=== PATIENT | male | born 1935 | race Caucasian/White ===

== ENCOUNTER 2017-09-30 18:31 | Emergency (ER) | payer MEDICARE, OTHER | END 2017-09-30 20:02 | disposition home or self-care (01) | LOC: E/R 18:31 → FTE 20:02 | DX: M75.91 Shoulder lesion, unspecified, right shoulder (principal); Z79.82 Long term (current) use of aspirin; Z95.0 Presence of cardiac pacemaker; Z95.1 Presence of aortocoronary bypass graft | CPT/HCPCS: 99283 ==

== ENCOUNTER 2018-05-27 00:51 | Inpatient (IN) | payer MEDICARE, OTHER ==
[2018-05-27 01:30] LABS: AADO2 Arterial 572.3 mmHg (7.0-24.0); ADD MAN DIFF? NO; Arterial Base Excess -4.5 mmol/L (-3.0-3); Arterial COHb 0.3 % (0.0-3.0); Arterial Fraction of Oxyhgb 96.6 % (93.0-99.0); Arterial HCO3 21.3 mmol/L (22.0-26.0); Arterial MetHb 0.1 % (0.0-1.5); Arterial pCO2 41.8 mmhg (35-45); MODE MASK - NRB; Site LB
[2018-05-27 01:33] LABS: BASOPHILS % 0.3 % (0.0-2.0); EOSINOPHILS # 0.1 10^3/ul (0.0-0.5); EOSINOPHILS % 0.5 % (0.0-7.0); HEMATOCRIT 42.1 % (42.0-52.0); LYMPHOCYTES # 1.8 10^3/ul (0.8-2.9); LYMPHOCYTES % 18.8 % (15.0-51.0); MEAN CORPUSCULAR HEMOGLOBIN 28.1 pg (29.0-33.0); MEAN CORPUSCULAR HGB CONC 30.9 g/dl (32.0-37.0); MEAN CORPUSCULAR VOLUME 90.9 fl (82.0-101.0); MEAN PLATELET VOLUME 10.7 fl (7.4-10.4); MONOCYTE # 0.6 10^3/ul (0.3-0.9); MONOCYTES % 5.9 % (0.0-11.0); NEUTROPHIL # 6.9 10^3/ul (1.6-7.5); NEUTROPHILS % 74.2 % (39.0-77.0); PLATELET COUNT 215 10^3/UL (140-415); RED BLOOD COUNT 4.63 10^6/ul (4.70-6.10)
[2018-05-27 01:33] LABS: WHITE BLOOD COUNT 9.4 10^3/ul (4.8-10.8)
[2018-05-27] MEDS: ALBUTEROL 0.083% (NEB) 2.5 MG/3 ML AMP NEB (01:48)
[2018-05-27] MEDS: IPRATROPIUM (NEB) 0.5 MG/2.5 ML AMP NEB (01:48)
[2018-05-27 01:53] LABS: ALANINE AMINOTRANSFERASE 15 IU/L (13-69); ALBUMIN 4.5 g/dl (3.3-4.9); ALBUMIN/GLOBULIN RATIO 1.21; ALKALINE PHOSPHATASE 76 IU/L (42-121); ANION GAP 15 (5-13); ASPARTATE AMINO TRANSFERASE 32 IU/L (15-46); BILIRUBIN,INDIRECT 0.9 mg/dl (0-1.1); BILIRUBIN,TOTAL 0.9 mg/dl (0.2-1.3); BLOOD UREA NITROGEN 35 mg/dl (7-20); CALCIUM 9.2 mg/dl (8.4-10.2); CARBON DIOXIDE 24 mmol/L (21-31); CHLORIDE 104 mmol/L (97-110); GLUCOSE 127 mg/dl (70-220); POTASSIUM 5.1 mmol/L (3.5-5.1); SODIUM 143 mmol/L (135-144); TOTAL PROTEIN 8.2 g/dl (6.1-8.1)
[2018-05-27 01:56] LABS: LACTIC ACID 2.4 mmol/L (0.5-2.0)
[2018-05-27 02:05] LABS: B-TYPE NATRIURETIC PEPTIDE 26200 PG/ML (0-450); TROPONIN-I 0.093 ng/ml (0.000-0.120)
[2018-05-27 02:22] LABS: INR 1.03; PROTIME 13.6 Sec (11.9-14.9); PT RATIO 1.1
[2018-05-27 02:23] LABS: PARTIAL THROMBOPLASTIN TIME 27.2 Sec (23.0-35.0)
[2018-05-27] MEDS: LORAZEPAM 2 MG INJ IV ×2 (02:38→09:33)
[2018-05-27] MEDS: CEFEPIME 2GM/50 ML (PMX) 50 ML IVPB (03:04)
[2018-05-27] MEDS: SODIUM CHLORIDE 0.9% 1L BAG IV* (03:04)
[2018-05-27] MEDS ORDERED: FUROSEMIDE 40 MG INJ (03:23)
[2018-05-27 03:30] LABS: AADO2 Arterial 595.8 mmHg (7.0-24.0); Arterial Base Excess -9.7 mmol/L (-3.0-3); Arterial Blood Gas Oxygen Sat 90.6 mmHG (95.0-100.0); Arterial COHb 0.3 % (0.0-3.0); Arterial Fraction of Oxyhgb 90.2 % (93.0-99.0); Arterial HCO3 18.1 mmol/L (22.0-26.0); Arterial MetHb 0.1 % (0.0-1.5); Arterial pCO2 46.3 mmhg (35-45); MODE MASK - NRB; Site Right Brachial
[2018-05-27] MEDS ORDERED: METHYLPREDNISOLONE 125 MG INJ (03:46)
[2018-05-27] MEDS ORDERED: NITROGLYCERIN 2% 1 GM OINT PKT (03:51)
[2018-05-27] MEDS: METHYLPREDNISOLONE 125 MG INJ IV (03:52)
[2018-05-27] MEDS: FUROSEMIDE 40 MG INJ IV (03:52)
[2018-05-27] MEDS: VANCOMYCIN 1 GM (PMX) 250 ML IVPB (04:08)
[2018-05-27] MEDS ORDERED: VANCOMYCIN IV PER PHARMACY XX (08:00)
[2018-05-27 08:08] LABS: AADO2 Arterial 510.4 mmHg (7.0-24.0); Allen Test ACCEPTAB; Arterial Base Excess -5.8 mmol/L (-3.0-3); Arterial Blood Gas Oxygen Sat 98.9 mmHG (95.0-100.0); Arterial COHb 0.3 % (0.0-3.0); Arterial Fraction of Oxyhgb 98.5 % (93.0-99.0); Arterial HCO3 18.5 mmol/L (22.0-26.0); Arterial MetHb 0.1 % (0.0-1.5); Arterial pCO2 33.1 mmhg (35-45); Blood Gas IEPAP 15/5; Blood Gas PS 10; MODE MASK - BIPAP; Site Right Radial
[2018-05-27] MEDS: ASPIRIN (EC) 81 MG TAB PO (09:00)
[2018-05-27] MEDS: METOPROLOL (XL) 50 MG TAB PO (09:00)
[2018-05-27] MEDS: LOSARTAN 50 MG TAB PO (09:00)
[2018-05-27] MEDS: CEFEPIME 1GM/50 ML (PMX) 50 ML IVPB ×2 (09:18→21:20)
[2018-05-27 09:26] LABS: LACTIC ACID 1.9 mmol/L (0.5-2.0)
[2018-05-27] MEDS: VANCOMYCIN 500MG/NS (PMX) 100 ML IVPB (10:25)
[2018-05-27] MEDS: ENALAPRILAT 1.25 MG INJ IV (13:45)
[2018-05-27 14:44] LABS: AADO2 Arterial 146.4 mmHg (7.0-24.0); Allen Test ACCEPTAB; Arterial Base Excess -3.9 mmol/L (-3.0-3); Arterial Blood Gas Oxygen Sat 96.8 mmHG (95.0-100.0); Arterial COHb 0 % (0.0-3.0); Arterial Fraction of Oxyhgb 96.7 % (93.0-99.0); Arterial HCO3 20.3 mmol/L (22.0-26.0); Arterial MetHb 0.1 % (0.0-1.5); Arterial pCO2 34.6 mmhg (35-45); MODE NASAL CANNULA; Site Right Radial
[2018-05-27 17:23] LABS: ADD UMIC YES; UR ASCORBIC ACID NEGATIVE (NEGATIVE); UR BACTERIA FEW /HPF (NONE SEEN); UR BILIRUBIN (Dip) NEGATIVE (NEGATIVE); UR BLOOD (Dip) 3+ mg/dL (NEGATIVE); UR CLARITY SLIGHTLY CLOUDY (CLEAR); UR COLOR YELLOW (YELLOW); UR GLUCOSE (Dip) NEGATIVE (NEGATIVE); UR KETONES (Dip) NEGATIVE (NEGATIVE); UR LEUKOCYTE ESTERASE (Dip) NEGATIVE Leu/ul (NEGATIVE); UR MUCUS FEW /HPF (NONE SEEN); UR NITRITE (Dip) NEGATIVE (NEGATIVE); UR RBC 121 /HPF (0-5); UR TOTAL PROTEIN (Dip) 1+ mg/dl (NEGATIVE); UR UROBILINOGEN (Dip) NEGATIVE (NEGATIVE); UR WBC 5 /HPF (0-5)
[2018-05-27 17:27] LABS: CREATININE,URINE RANDOM 60.85 mg/dl (20-370)
[2018-05-27 17:27] LABS: SODIUM,URINE RANDOM 86 mmol/L (30-90)
[2018-05-27] MEDS: ATORVASTATIN 40 MG TAB PO (21:00)
[2018-05-28] MEDS: VANCOMYCIN 750 MG in SOD CHLORIDE 0.9% 150 ML IVPB (04:01)
[2018-05-28 06:52] LABS: ADD MAN DIFF? NO
[2018-05-28 06:57] LABS: ABNORMAL IP MESSAGE 1; BASOPHILS % 0.1 % (0.0-2.0); HEMATOCRIT 38.4 % (42.0-52.0); HEMOGLOBIN 12.4 g/dl (14.0-18.0); LYMPHOCYTES # 0.6 10^3/ul (0.8-2.9); LYMPHOCYTES % 4.1 % (15.0-51.0); MEAN CORPUSCULAR HEMOGLOBIN 28.4 pg (29.0-33.0); MEAN CORPUSCULAR HGB CONC 32.3 g/dl (32.0-37.0); MEAN CORPUSCULAR VOLUME 87.9 fl (82.0-101.0); MEAN PLATELET VOLUME 11.4 fl (7.4-10.4); MONOCYTE # 0.4 10^3/ul (0.3-0.9); MONOCYTES % 2.8 % (0.0-11.0); NEUTROPHIL # 12.7 10^3/ul (1.6-7.5); NEUTROPHILS % 92.6 % (39.0-77.0); PLATELET COUNT 167 10^3/UL (140-415); POSITIVE DIFF @See below; RED BLOOD COUNT 4.37 10^6/ul (4.70-6.10); RED CELL DISTRIBUTION WIDTH 15.6 % (11.5-14.5)
[2018-05-28 06:57] LABS: WHITE BLOOD COUNT 13.7 10^3/ul (4.8-10.8)
[2018-05-28 07:39] LABS: ANION GAP 15 (5-13); BLOOD UREA NITROGEN 60 mg/dl (7-20); CALCIUM 9.1 mg/dl (8.4-10.2); CARBON DIOXIDE 21 mmol/L (21-31); CHLORIDE 106 mmol/L (97-110); CREATININE 2.59 mg/dl (0.61-1.24); GLUCOSE 100 mg/dl (70-220); MAGNESIUM 2.1 mg/dl (1.7-2.5); PHOSPHORUS 5.8 mg/dl (2.5-4.9); POTASSIUM 4.7 mmol/L (3.5-5.1); SODIUM 142 mmol/L (135-144)
[2018-05-28] MEDS: ASPIRIN (EC) 81 MG TAB PO (09:09)
[2018-05-28] MEDS: METOPROLOL (XL) 50 MG TAB PO (09:10)
[2018-05-28] MEDS: LOSARTAN 50 MG TAB PO (09:11)
[2018-05-28] MEDS: CEFEPIME 1GM/50 ML (PMX) 50 ML IVPB (09:11)
[2018-05-28] MEDS: LORAZEPAM 2 MG INJ IV ×2 (12:27→18:02)
[2018-05-28] MEDS: ISOSORBIDE DINITRATE 10 MG TAB PO ×2 (12:33→22:22)
[2018-05-28] MEDS: ATORVASTATIN 40 MG TAB PO (22:22)
[2018-05-29] MEDS: VANCOMYCIN 750 MG in SOD CHLORIDE 0.9% 150 ML IVPB (03:42)
[2018-05-29 07:20] LABS: ADD MAN DIFF? NO
[2018-05-29 07:28] LABS: BASOPHILS % 0.1 % (0.0-2.0); EOSINOPHILS % 0.4 % (0.0-7.0); HEMATOCRIT 36.5 % (42.0-52.0); HEMOGLOBIN 11.7 g/dl (14.0-18.0); LYMPHOCYTES % 9.9 % (15.0-51.0); MEAN CORPUSCULAR HGB CONC 32.1 g/dl (32.0-37.0); MEAN CORPUSCULAR VOLUME 87.3 fl (82.0-101.0); MEAN PLATELET VOLUME 11.5 fl (7.4-10.4); MONOCYTE # 0.6 10^3/ul (0.3-0.9); NEUTROPHIL # 8.4 10^3/ul (1.6-7.5); NEUTROPHILS % 83.2 % (39.0-77.0); PLATELET COUNT 153 10^3/UL (140-415); RED BLOOD COUNT 4.18 10^6/ul (4.70-6.10); RED CELL DISTRIBUTION WIDTH 15.7 % (11.5-14.5)
[2018-05-29 07:28] LABS: WHITE BLOOD COUNT 10.1 10^3/ul (4.8-10.8)
[2018-05-29 08:03] LABS: B-TYPE NATRIURETIC PEPTIDE 21400 PG/ML (0-450)
[2018-05-29 08:11] LABS: ANION GAP 10 (5-13); BLOOD UREA NITROGEN 71 mg/dl (7-20); CALCIUM 8.4 mg/dl (8.4-10.2); CARBON DIOXIDE 25 mmol/L (21-31); CHLORIDE 105 mmol/L (97-110); CREATININE 2.48 mg/dl (0.61-1.24); GLUCOSE 90 mg/dl (70-220); MAGNESIUM 2.1 mg/dl (1.7-2.5); PHOSPHORUS 3.8 mg/dl (2.5-4.9); POTASSIUM 4.5 mmol/L (3.5-5.1); SODIUM 140 mmol/L (135-144)
[2018-05-29 08:24] LABS: AADO2 Arterial 67.5 mmHg (7.0-24.0); Allen Test ACCEPTAB; Arterial Base Excess -2.1 mmol/L (-3.0-3); Arterial Blood Gas Oxygen Sat 98.7 mmHG (95.0-100.0); Arterial COHb 0.3 % (0.0-3.0); Arterial Fraction of Oxyhgb 98.3 % (93.0-99.0); Arterial HCO3 21.9 mmol/L (22.0-26.0); Arterial MetHb 0.1 % (0.0-1.5); Arterial pCO2 35.1 mmhg (35-45); MODE NASAL CANNULA; Site Right Radial
[2018-05-29] MEDS: CEFEPIME 1GM/50 ML (PMX) 50 ML IVPB (10:03)
[2018-05-29] MEDS: ASPIRIN (EC) 81 MG TAB PO (10:04)
[2018-05-29] MEDS: METOPROLOL (XL) 50 MG TAB PO (10:04)
[2018-05-29] MEDS: ISOSORBIDE DINITRATE 10 MG TAB PO ×3 (10:04→21:08)
[2018-05-29] MEDS: ALBUTEROL/IPRATROPIUM (NEB) 3 ML AMP HHN (12:04)
[2018-05-29 17:57] LABS: CREATININE, RANDOM URINE 63 mg/dL (20-320); MICROALBUMIN 28.6 mg/dL; MICROALBUMIN/CREATININE RATIO 454 (<30)
[2018-05-29] MEDS: ATORVASTATIN 40 MG TAB PO (21:07)
[2018-05-30 03:37] LABS: ADD MAN DIFF? NO
[2018-05-30 04:03] LABS: ANION GAP 9 (5-13); BLOOD UREA NITROGEN 69 mg/dl (7-20); CALCIUM 8.7 mg/dl (8.4-10.2); CARBON DIOXIDE 24 mmol/L (21-31); CHLORIDE 109 mmol/L (97-110); CREATININE 1.98 mg/dl (0.61-1.24); GLUCOSE 99 mg/dl (70-220); MAGNESIUM 2.1 mg/dl (1.7-2.5); PHOSPHORUS 3.4 mg/dl (2.5-4.9); POTASSIUM 4.7 mmol/L (3.5-5.1); SODIUM 142 mmol/L (135-144)
[2018-05-30 04:05] LABS: BASOPHILS % 0.2 % (0.0-2.0); EOSINOPHILS # 0.1 10^3/ul (0.0-0.5); EOSINOPHILS % 1.5 % (0.0-7.0); HEMOGLOBIN 11.5 g/dl (14.0-18.0); LYMPHOCYTES % 11.4 % (15.0-51.0); MEAN CORPUSCULAR HGB CONC 31.9 g/dl (32.0-37.0); MEAN CORPUSCULAR VOLUME 87.6 fl (82.0-101.0); MEAN PLATELET VOLUME 11.4 fl (7.4-10.4); MONOCYTE # 0.6 10^3/ul (0.3-0.9); MONOCYTES % 6.6 % (0.0-11.0); NEUTROPHIL # 6.8 10^3/ul (1.6-7.5); NEUTROPHILS % 79.8 % (39.0-77.0); PLATELET COUNT 176 10^3/UL (140-415); RED BLOOD COUNT 4.11 10^6/ul (4.70-6.10); RED CELL DISTRIBUTION WIDTH 15.6 % (11.5-14.5)
[2018-05-30 04:05] LABS: WHITE BLOOD COUNT 8.6 10^3/ul (4.8-10.8)
[2018-05-30 04:13] LABS: VANCOMYCIN,TROUGH 18.1 ug/ml (10.0-20.0)
[2018-05-30] MEDS: LORAZEPAM 2 MG INJ IV (07:07)
[2018-05-30] MEDS ORDERED: LORAZEPAM 0.5 MG TAB PO (08:30)
[2018-05-30] MEDS: ASPIRIN (EC) 81 MG TAB PO (08:46)
[2018-05-30] MEDS: QUETIAPINE 25 MG TAB PO (08:46)
[2018-05-30] MEDS: ISOSORBIDE DINITRATE 10 MG TAB PO ×3 (08:47→13:00)
[2018-05-30] MEDS: METOPROLOL (XL) 50 MG TAB PO (08:48)
[2018-05-30] MEDS: CEFEPIME 1GM/50 ML (PMX) 50 ML IVPB (11:30)
[2018-05-30] MEDS: VANCOMYCIN 750 MG in SOD CHLORIDE 0.9% 150 ML IVPB (16:46)
[2018-05-30] MEDS: ATORVASTATIN 40 MG TAB PO (20:22)
[2018-05-31 08:12] LABS: ALANINE AMINOTRANSFERASE 134 IU/L (13-69); ALBUMIN 3.3 g/dl (3.3-4.9); ALBUMIN/GLOBULIN RATIO 1.03; ALKALINE PHOSPHATASE 56 IU/L (42-121); ANION GAP 8 (5-13); ASPARTATE AMINO TRANSFERASE 65 IU/L (15-46); BILIRUBIN,INDIRECT 0.7 mg/dl (0-1.1); BILIRUBIN,TOTAL 0.7 mg/dl (0.2-1.3); BLOOD UREA NITROGEN 51 mg/dl (7-20); CALCIUM 8.9 mg/dl (8.4-10.2); CARBON DIOXIDE 25 mmol/L (21-31); CHLORIDE 111 mmol/L (97-110); CREATININE 1.46 mg/dl (0.61-1.24); GLUCOSE 92 mg/dl (70-220); SODIUM 144 mmol/L (135-144); TOTAL PROTEIN 6.5 g/dl (6.1-8.1)
[2018-05-31 08:14] LABS: B-TYPE NATRIURETIC PEPTIDE 14000 PG/ML (0-450)
[2018-05-31] MEDS: ISOSORBIDE DINITRATE 10 MG TAB PO ×3 (08:24→20:46)
[2018-05-31] MEDS: ASPIRIN (EC) 81 MG TAB PO (08:24)
[2018-05-31] MEDS: CEFEPIME 1GM/50 ML (PMX) 50 ML IVPB (08:24)
[2018-05-31] MEDS: METOPROLOL (XL) 50 MG TAB PO (08:25)
[2018-05-31 09:10] LABS: ANION GAP 8 (5-13); BLOOD UREA NITROGEN 50 mg/dl (7-20); CALCIUM 8.9 mg/dl (8.4-10.2); CARBON DIOXIDE 24 mmol/L (21-31); CHLORIDE 111 mmol/L (97-110); CREATININE 1.42 mg/dl (0.61-1.24); GLUCOSE 90 mg/dl (70-220); SODIUM 143 mmol/L (135-144)
[2018-05-31 09:23] LABS: POTASSIUM 5.4 mmol/L (3.5-5.1)
[2018-05-31] MEDS: BUMETANIDE 1 MG TAB PO (20:46)
[2018-05-31] MEDS: ATORVASTATIN 40 MG TAB PO (20:46)
[2018-05-31] MEDS ORDERED: VANCOMYCIN 750 MG in SOD CHLORIDE 0.9% 150 ML IVPB (23:00)
[2018-06-01] MEDS: BUMETANIDE 1 MG TAB PO (08:15)
[2018-06-01] MEDS: ISOSORBIDE DINITRATE 10 MG TAB PO ×3 (08:16→22:20)
[2018-06-01] MEDS: METOPROLOL (XL) 50 MG TAB PO (08:16)
[2018-06-01] MEDS: CEFEPIME 1GM/50 ML (PMX) 50 ML IVPB (08:17)
[2018-06-01] MEDS: ASPIRIN (EC) 81 MG TAB PO (08:17)
[2018-06-01 08:24] LABS: ADD MAN DIFF? NO
[2018-06-01 08:29] LABS: WHITE BLOOD COUNT 8.2 10^3/ul (4.8-10.8)
[2018-06-01 08:29] LABS: BASOPHILS % 0.5 % (0.0-2.0); EOSINOPHILS # 0.3 10^3/ul (0.0-0.5); EOSINOPHILS % 3.5 % (0.0-7.0); HEMATOCRIT 39.4 % (42.0-52.0); HEMOGLOBIN 12.7 g/dl (14.0-18.0); LYMPHOCYTES # 1.3 10^3/ul (0.8-2.9); LYMPHOCYTES % 15.3 % (15.0-51.0); MEAN CORPUSCULAR HGB CONC 32.2 g/dl (32.0-37.0); MEAN CORPUSCULAR VOLUME 86.8 fl (82.0-101.0); MONOCYTE # 0.8 10^3/ul (0.3-0.9); MONOCYTES % 10.1 % (0.0-11.0); NEUTROPHIL # 5.8 10^3/ul (1.6-7.5); NEUTROPHILS % 70.2 % (39.0-77.0); PLATELET COUNT 225 10^3/UL (140-415); RED BLOOD COUNT 4.54 10^6/ul (4.70-6.10); RED CELL DISTRIBUTION WIDTH 15.8 % (11.5-14.5)
[2018-06-01 08:51] LABS: ANION GAP 9 (5-13); BLOOD UREA NITROGEN 50 mg/dl (7-20); CALCIUM 9.1 mg/dl (8.4-10.2); CARBON DIOXIDE 25 mmol/L (21-31); CHLORIDE 106 mmol/L (97-110); CREATININE 1.61 mg/dl (0.61-1.24); GLUCOSE 91 mg/dl (70-220); MAGNESIUM 2.1 mg/dl (1.7-2.5); PHOSPHORUS 3.1 mg/dl (2.5-4.9); POTASSIUM 4.7 mmol/L (3.5-5.1); SODIUM 140 mmol/L (135-144)
[2018-06-01] MEDS: ATORVASTATIN 40 MG TAB PO (22:20)
[2018-06-02] MEDS: BUMETANIDE 1 MG TAB PO (09:29)
[2018-06-02] MEDS: METOPROLOL (XL) 50 MG TAB PO (09:29)
[2018-06-02] MEDS: CEFEPIME 1GM/50 ML (PMX) 50 ML IVPB (09:29)
[2018-06-02] MEDS: ISOSORBIDE DINITRATE 10 MG TAB PO ×3 (09:29→21:50)
[2018-06-02] MEDS: ASPIRIN (EC) 81 MG TAB PO (09:29)
[2018-06-02] MEDS: QUETIAPINE 25 MG TAB PO ×2 (09:30→21:50)
[2018-06-02] MEDS: ATORVASTATIN 40 MG TAB PO (21:49)
[2018-06-03] MEDS: ALBUTEROL/IPRATROPIUM (NEB) 3 ML AMP HHN (03:33)
[2018-06-03 08:20] LABS: ADD MAN DIFF? NO
[2018-06-03 08:27] LABS: WHITE BLOOD COUNT 9.9 10^3/ul (4.8-10.8)
[2018-06-03 08:27] LABS: BASOPHIL # 0.1 10^3/ul (0.0-0.1); BASOPHILS % 0.6 % (0.0-2.0); EOSINOPHILS # 0.3 10^3/ul (0.0-0.5); EOSINOPHILS % 2.8 % (0.0-7.0); HEMATOCRIT 37.8 % (42.0-52.0); HEMOGLOBIN 12.1 g/dl (14.0-18.0); LYMPHOCYTES # 1.7 10^3/ul (0.8-2.9); LYMPHOCYTES % 17.6 % (15.0-51.0); MEAN CORPUSCULAR HEMOGLOBIN 27.8 pg (29.0-33.0); MEAN CORPUSCULAR VOLUME 86.7 fl (82.0-101.0); MEAN PLATELET VOLUME 10.6 fl (7.4-10.4); MONOCYTE # 0.9 10^3/ul (0.3-0.9); NEUTROPHIL # 6.9 10^3/ul (1.6-7.5); NEUTROPHILS % 69.5 % (39.0-77.0); PLATELET COUNT 265 10^3/UL (140-415); RED BLOOD COUNT 4.36 10^6/ul (4.70-6.10); RED CELL DISTRIBUTION WIDTH 15.9 % (11.5-14.5)
[2018-06-03 08:45] LABS: ANION GAP 11 (5-13); BLOOD UREA NITROGEN 62 mg/dl (7-20); CALCIUM 9.3 mg/dl (8.4-10.2); CARBON DIOXIDE 26 mmol/L (21-31); CHLORIDE 104 mmol/L (97-110); CREATININE 2.22 mg/dl (0.61-1.24); GLUCOSE 97 mg/dl (70-220); POTASSIUM 4.8 mmol/L (3.5-5.1); SODIUM 141 mmol/L (135-144)
[2018-06-03] MEDS: CEFEPIME 1GM/50 ML (PMX) 50 ML IVPB (09:13)
[2018-06-03] MEDS: ISOSORBIDE DINITRATE 10 MG TAB PO ×3 (09:14→21:20)
[2018-06-03] MEDS: BUMETANIDE 1 MG TAB PO (09:14)
[2018-06-03] MEDS: METOPROLOL (XL) 50 MG TAB PO (09:14)
[2018-06-03] MEDS: QUETIAPINE 25 MG TAB PO (09:14)
[2018-06-03] MEDS: ASPIRIN (EC) 81 MG TAB PO (09:14)
[2018-06-03] MEDS: APIXABAN 5 MG TABLET PO (21:19)
[2018-06-03] MEDS: ATORVASTATIN 40 MG TAB PO (21:19)
[2018-06-04 06:12] LABS: ADD MAN DIFF? NO
[2018-06-04 06:15] LABS: WHITE BLOOD COUNT 14.3 10^3/ul (4.8-10.8)
[2018-06-04 06:15] LABS: BASOPHIL # 0.1 10^3/ul (0.0-0.1); BASOPHILS % 0.3 % (0.0-2.0); EOSINOPHILS # 0.2 10^3/ul (0.0-0.5); EOSINOPHILS % 1.6 % (0.0-7.0); HEMATOCRIT 39.6 % (42.0-52.0); HEMOGLOBIN 12.6 g/dl (14.0-18.0); LYMPHOCYTES # 1.4 10^3/ul (0.8-2.9); LYMPHOCYTES % 9.9 % (15.0-51.0); MEAN CORPUSCULAR HEMOGLOBIN 27.9 pg (29.0-33.0); MEAN CORPUSCULAR HGB CONC 31.8 g/dl (32.0-37.0); MEAN CORPUSCULAR VOLUME 87.6 fl (82.0-101.0); MONOCYTE # 1.1 10^3/ul (0.3-0.9); MONOCYTES % 7.4 % (0.0-11.0); NEUTROPHIL # 11.5 10^3/ul (1.6-7.5); NEUTROPHILS % 80.1 % (39.0-77.0); PLATELET COUNT 299 10^3/UL (140-415); RED BLOOD COUNT 4.52 10^6/ul (4.70-6.10); RED CELL DISTRIBUTION WIDTH 15.7 % (11.5-14.5)
[2018-06-04 06:55] LABS: B-TYPE NATRIURETIC PEPTIDE 7580 PG/ML (0-450)
[2018-06-04 07:04] LABS: ANION GAP 14 (5-13); BLOOD UREA NITROGEN 66 mg/dl (7-20); CALCIUM 9.3 mg/dl (8.4-10.2); CARBON DIOXIDE 24 mmol/L (21-31); CHLORIDE 101 mmol/L (97-110); CREATININE 2.39 mg/dl (0.61-1.24); GLUCOSE 130 mg/dl (70-220); PHOSPHORUS 4.3 mg/dl (2.5-4.9); POTASSIUM 4.8 mmol/L (3.5-5.1); SODIUM 139 mmol/L (135-144)
[2018-06-04] MEDS: ACETAMINOPHEN 500 MG TAB PO (07:04)
[2018-06-04] MEDS: APIXABAN 5 MG TABLET PO (10:23)
[2018-06-04] MEDS: QUETIAPINE 25 MG TAB PO ×2 (10:23→18:09)
[2018-06-04] MEDS: METOPROLOL (XL) 50 MG TAB PO (10:26)
[2018-06-04] MEDS: ISOSORBIDE DINITRATE 10 MG TAB PO ×2 (10:26→13:41)
[2018-06-04] MEDS: CEFEPIME 1GM/50 ML (PMX) 50 ML IVPB (10:38)
[2018-06-05] MEDS ORDERED: BUMETANIDE 1 MG TAB PO (09:00)
== END 2018-06-04 19:44 | DRG 871 ==
LOC: TEL 05-31 17:10 → E/R 00:51 → TEL 02:03
PROC: 5A09357 Assistance with Respiratory Ventilation, Less than 24 Consecutive Hours, Continuous Positive Airway Pressure (ICD-10-PCS; principal; 2018-05-27)
DX: A41.9 Sepsis, unspecified organism (principal); I50.23 Acute on chronic systolic (congestive) heart failure; J96.01 Acute respiratory failure with hypoxia; J18.9 Pneumonia, unspecified organism; J96.02 Acute respiratory failure with hypercapnia; I13.0 Hypertensive heart and chronic kidney disease with heart failure and stage 1 through stage 4 chronic kidney disease, or unspecified chronic kidney disease; N17.9 Acute kidney failure, unspecified; G93.40 Encephalopathy, unspecified; J44.1 Chronic obstructive pulmonary disease with (acute) exacerbation; N18.4 Chronic kidney disease, stage 4 (severe); L03.116 Cellulitis of left lower limb; R65.20 Severe sepsis without septic shock; E78.5 Hyperlipidemia, unspecified; F41.9 Anxiety disorder, unspecified; I73.9 Peripheral vascular disease, unspecified; I25.10 Atherosclerotic heart disease of native coronary artery without angina pectoris; I25.5 Ischemic cardiomyopathy; I48.91 Unspecified atrial fibrillation; I45.9 Conduction disorder, unspecified; J40 Bronchitis, not specified as acute or chronic; R45.1 Restlessness and agitation; Z95.1 Presence of aortocoronary bypass graft; Z95.810 Presence of automatic (implantable) cardiac defibrillator; Z85.818 Personal history of malignant neoplasm of other sites of lip, oral cavity, and pharynx; Z93.0 Tracheostomy status; Z90.02 Acquired absence of larynx; Z89.511 Acquired absence of right leg below knee; Z87.891 Personal history of nicotine dependence; Z79.1 Long term (current) use of non-steroidal anti-inflammatories (NSAID); Z79.82 Long term (current) use of aspirin
CPT/HCPCS: 36415; 36600; 71045; 73100; 80048; 80053; 80202; 81001; 81003; 82043; 82803; 83605; 83735; 83880; 84100; 84145; 84155; 84300; 84484; 85025; 85610; 85730; 87040; 87086; 92526; 92610; 93005; 93306; 94640; 94660; 94664; 99291-25

== ENCOUNTER 2018-07-22 22:38 | Inpatient (IN) | payer MEDICARE, OTHER ==
[2018-07-22 23:57] LABS: ADD MAN DIFF? NO
[2018-07-22 23:58] LABS: WHITE BLOOD COUNT 17.8 10^3/ul (4.8-10.8)
[2018-07-22 23:58] LABS: BASOPHIL # 0.1 10^3/ul (0.0-0.1); BASOPHILS % 0.5 % (0.0-2.0); EOSINOPHILS % 0.1 % (0.0-7.0); HEMATOCRIT 34.7 % (42.0-52.0); HEMOGLOBIN 10.6 g/dl (14.0-18.0); LYMPHOCYTES # 0.7 10^3/ul (0.8-2.9); LYMPHOCYTES % 4.2 % (15.0-51.0); MEAN CORPUSCULAR HEMOGLOBIN 27.2 pg (29.0-33.0); MEAN CORPUSCULAR HGB CONC 30.5 g/dl (32.0-37.0); MEAN CORPUSCULAR VOLUME 89.2 fl (82.0-101.0); MEAN PLATELET VOLUME 9.8 fl (7.4-10.4); MONOCYTE # 1.1 10^3/ul (0.3-0.9); MONOCYTES % 6.1 % (0.0-11.0); NEUTROPHIL # 15.7 10^3/ul (1.6-7.5); NEUTROPHILS % 88.5 % (39.0-77.0); PLATELET COUNT 399 10^3/UL (140-415); RED BLOOD COUNT 3.89 10^6/ul (4.70-6.10); RED CELL DISTRIBUTION WIDTH 18.3 % (11.5-14.5)
[2018-07-23 00:15] LABS: ALANINE AMINOTRANSFERASE 49 IU/L (13-69); ALBUMIN 4.1 g/dl (3.3-4.9); ALBUMIN/GLOBULIN RATIO 0.95; ALKALINE PHOSPHATASE 89 IU/L (42-121); ANION GAP 10 (5-13); ASPARTATE AMINO TRANSFERASE 43 IU/L (15-46); BILIRUBIN,INDIRECT 0.4 mg/dl (0-1.1); BILIRUBIN,TOTAL 0.4 mg/dl (0.2-1.3); BLOOD UREA NITROGEN 49 mg/dl (7-20); CALCIUM 9.6 mg/dl (8.4-10.2); CARBON DIOXIDE 21 mmol/L (21-31); CHLORIDE 110 mmol/L (97-110); CREATININE 1.86 mg/dl (0.61-1.24); GLUCOSE 138 mg/dl (70-220); SODIUM 141 mmol/L (135-144); TOTAL PROTEIN 8.4 g/dl (6.1-8.1)
[2018-07-23] MEDS: FUROSEMIDE 100 MG INJ IV (00:17)
[2018-07-23] MEDS: NITROGLYCERIN 2% 1 GM OINT PKT TD (00:18)
[2018-07-23 00:24] LABS: POTASSIUM 6.1 mmol/L (3.5-5.1)
[2018-07-23 00:26] LABS: INR 1.18; PROTIME 15.1 Sec (11.9-14.9); PT RATIO 1.2
[2018-07-23 00:27] LABS: B-TYPE NATRIURETIC PEPTIDE 34300 PG/ML (0-450); PARTIAL THROMBOPLASTIN TIME 30.6 Sec (23.0-35.0); TROPONIN-I 0.078 ng/ml (0.000-0.120)
[2018-07-23 01:10] LABS: AADO2 Arterial 219.8 mmHg (7.0-24.0); Allen Test ACCEPTAB; Arterial Base Excess -4.7 mmol/L (-3.0-3); Arterial Blood Gas Oxygen Sat 96.7 mmHG (95.0-100.0); Arterial COHb 0.3 % (0.0-3.0); Arterial Fraction of Oxyhgb 96.3 % (93.0-99.0); Arterial HCO3 19.8 mmol/L (22.0-26.0); Arterial MetHb 0.1 % (0.0-1.5); Arterial pCO2 34.6 mmhg (35-45); Blood Gas Amplitude 29; Blood Gas IEPAP 15/5; Blood Gas PS 10; MODE MASK - BIPAP; Site Right Radial
[2018-07-23] MEDS ORDERED: LORAZEPAM 2 MG INJ (04:31)
[2018-07-23] MEDS: LORAZEPAM 2 MG INJ IV (04:37)
[2018-07-23 06:09] LABS: LACTIC ACID 1.1 mmol/L (0.5-2.0)
[2018-07-23] MEDS ORDERED: NA POLYST SULFON 15 GM/60 ML BTL (08:29)
[2018-07-23] MEDS: SODIUM POLYSTYRENE 15 GM KIT (POWDER + SORBITOL) PO (08:33)
[2018-07-23 08:51] LABS: ADD MAN DIFF? NO
[2018-07-23 08:53] LABS: BASOPHIL # 0.1 10^3/ul (0.0-0.1); BASOPHILS % 0.4 % (0.0-2.0); HEMATOCRIT 31.7 % (42.0-52.0); HEMOGLOBIN 9.9 g/dl (14.0-18.0); LYMPHOCYTES # 1.2 10^3/ul (0.8-2.9); LYMPHOCYTES % 8.3 % (15.0-51.0); MEAN CORPUSCULAR HEMOGLOBIN 27.7 pg (29.0-33.0); MEAN CORPUSCULAR HGB CONC 31.2 g/dl (32.0-37.0); MEAN CORPUSCULAR VOLUME 88.5 fl (82.0-101.0); MEAN PLATELET VOLUME 9.7 fl (7.4-10.4); MONOCYTE # 0.9 10^3/ul (0.3-0.9); MONOCYTES % 6.1 % (0.0-11.0); NEUTROPHIL # 12.6 10^3/ul (1.6-7.5); NEUTROPHILS % 84.9 % (39.0-77.0); PLATELET COUNT 337 10^3/UL (140-415); RED BLOOD COUNT 3.58 10^6/ul (4.70-6.10); RED CELL DISTRIBUTION WIDTH 18.2 % (11.5-14.5)
[2018-07-23 08:53] LABS: WHITE BLOOD COUNT 14.8 10^3/ul (4.8-10.8)
[2018-07-23 09:15] LABS: ALANINE AMINOTRANSFERASE 39 IU/L (13-69); ALBUMIN 3.7 g/dl (3.3-4.9); ALBUMIN/GLOBULIN RATIO 0.94; ALKALINE PHOSPHATASE 79 IU/L (42-121); ANION GAP 9 (5-13); ASPARTATE AMINO TRANSFERASE 37 IU/L (15-46); BILIRUBIN,INDIRECT 0.5 mg/dl (0-1.1); BILIRUBIN,TOTAL 0.5 mg/dl (0.2-1.3); BLOOD UREA NITROGEN 52 mg/dl (7-20); CALCIUM 9.4 mg/dl (8.4-10.2); CARBON DIOXIDE 24 mmol/L (21-31); CHLORIDE 108 mmol/L (97-110); CREATININE 1.87 mg/dl (0.61-1.24); GLUCOSE 112 mg/dl (70-220); POTASSIUM 5.2 mmol/L (3.5-5.1); SODIUM 141 mmol/L (135-144); TOTAL PROTEIN 7.6 g/dl (6.1-8.1)
[2018-07-23] MEDS: ASPIRIN (EC) 81 MG TAB PO (09:56)
[2018-07-23] MEDS: CEFEPIME 1GM/50 ML (PMX) 50 ML IVPB (09:56)
[2018-07-23] MEDS: METOPROLOL (XL) 50 MG TAB PO (09:56)
[2018-07-23] MEDS ORDERED: CEFEPIME 1GM/50 ML (PMX) 50 ML IVPB (12:00)
[2018-07-23 17:01] LABS: ADD UMIC NO; UR ASCORBIC ACID 40 mg/dL (NEGATIVE); UR BILIRUBIN (Dip) NEGATIVE (NEGATIVE); UR BLOOD (Dip) NEGATIVE (NEGATIVE); UR CLARITY CLEAR (CLEAR); UR COLOR YELLOW (YELLOW); UR GLUCOSE (Dip) NEGATIVE (NEGATIVE); UR KETONES (Dip) NEGATIVE (NEGATIVE); UR LEUKOCYTE ESTERASE (Dip) NEGATIVE Leu/ul (NEGATIVE); UR NITRITE (Dip) NEGATIVE (NEGATIVE); UR SPECIFIC GRAVITY (Dip) 1.014 (1.003-1.030); UR TOTAL PROTEIN (Dip) NEGATIVE (NEGATIVE); UR UROBILINOGEN (Dip) NEGATIVE (NEGATIVE)
[2018-07-23 17:08] LABS: CREATININE,URINE RANDOM 74.54 mg/dl (20-370)
[2018-07-23 17:08] LABS: SODIUM,URINE RANDOM 51 mmol/L (30-90)
[2018-07-23] MEDS: ATORVASTATIN 40 MG TAB PO (20:15)
[2018-07-23] MEDS: QUETIAPINE 25 MG TAB PO (20:15)
[2018-07-24 05:52] LABS: ADD MAN DIFF? NO
[2018-07-24 06:25] LABS: ANION GAP 5 (5-13); BLOOD UREA NITROGEN 52 mg/dl (7-20); CALCIUM 8.6 mg/dl (8.4-10.2); CARBON DIOXIDE 26 mmol/L (21-31); CHLORIDE 110 mmol/L (97-110); CREATININE 1.68 mg/dl (0.61-1.24); GLUCOSE 104 mg/dl (70-220); MAGNESIUM 2.1 mg/dl (1.7-2.5); PHOSPHORUS 3.9 mg/dl (2.5-4.9); POTASSIUM 3.9 mmol/L (3.5-5.1); SODIUM 141 mmol/L (135-144)
[2018-07-24 06:46] LABS: BASOPHIL # 0.1 10^3/ul (0.0-0.1); BASOPHILS % 0.5 % (0.0-2.0); EOSINOPHILS # 0.1 10^3/ul (0.0-0.5); EOSINOPHILS % 1.4 % (0.0-7.0); HEMATOCRIT 27.7 % (42.0-52.0); HEMOGLOBIN 8.8 g/dl (14.0-18.0); LYMPHOCYTES # 0.9 10^3/ul (0.8-2.9); LYMPHOCYTES % 9.3 % (15.0-51.0); MEAN CORPUSCULAR HEMOGLOBIN 27.8 pg (29.0-33.0); MEAN CORPUSCULAR HGB CONC 31.8 g/dl (32.0-37.0); MEAN CORPUSCULAR VOLUME 87.4 fl (82.0-101.0); MEAN PLATELET VOLUME 9.8 fl (7.4-10.4); MONOCYTE # 0.8 10^3/ul (0.3-0.9); MONOCYTES % 8.3 % (0.0-11.0); NEUTROPHIL # 7.6 10^3/ul (1.6-7.5); NEUTROPHILS % 80.1 % (39.0-77.0); PLATELET COUNT 276 10^3/UL (140-415); RED BLOOD COUNT 3.17 10^6/ul (4.70-6.10); RED CELL DISTRIBUTION WIDTH 18.1 % (11.5-14.5)
[2018-07-24 06:46] LABS: WHITE BLOOD COUNT 9.5 10^3/ul (4.8-10.8)
[2018-07-24] MEDS: METOPROLOL (XL) 50 MG TAB PO (08:22)
[2018-07-24] MEDS: FAMOTIDINE 20 MG TAB PO (08:22)
[2018-07-24] MEDS: ASPIRIN (EC) 81 MG TAB PO (08:22)
[2018-07-24] MEDS: CEFEPIME 1GM/50 ML (PMX) 50 ML IVPB (08:23)
[2018-07-24] MEDS: ENOXAPARIN 30 MG/0.3 ML SYG SC (08:27)
[2018-07-24] MEDS: FUROSEMIDE 40 MG INJ IV (08:40)
[2018-07-24 08:52] LABS: B-TYPE NATRIURETIC PEPTIDE 38100 PG/ML (0-450)
[2018-07-24] MEDS: APIXABAN 5 MG TABLET PO ×2 (10:08→20:18)
[2018-07-24] MEDS: BUMETANIDE 3 MG in DEXTROSE 5% 18 ML IV (10:47)
[2018-07-24] MEDS: DOCUSATE SODIUM 100 MG CAP PO ×2 (14:51→20:19)
[2018-07-24] MEDS: MUPIROCIN 2% 22 GM OINT TOP ×2 (14:52→20:17)
[2018-07-24] MEDS: POLYETHYLENE GLYCOL 17 GM PACKET PO (14:52)
[2018-07-24] MEDS: QUETIAPINE 25 MG TAB PO ×2 (14:52→20:17)
[2018-07-24 15:32] LABS: CREATININE, RANDOM URINE 70 mg/dL (20-320); MICROALBUMIN 5.9 mg/dL; MICROALBUMIN/CREATININE RATIO 84 (<30)
[2018-07-24] MEDS: DOXYCYCLINE 100 MG TAB PO (15:37)
[2018-07-24] MEDS: ATORVASTATIN 40 MG TAB PO (20:19)
[2018-07-25] MEDS: DOXYCYCLINE 100 MG TAB PO ×3 (01:32→20:44)
[2018-07-25 05:50] LABS: ADD MAN DIFF? NO
[2018-07-25 06:02] LABS: BASOPHIL # 0.1 10^3/ul (0.0-0.1); BASOPHILS % 0.9 % (0.0-2.0); EOSINOPHILS # 0.2 10^3/ul (0.0-0.5); EOSINOPHILS % 2.4 % (0.0-7.0); HEMATOCRIT 30.4 % (42.0-52.0); HEMOGLOBIN 9.7 g/dl (14.0-18.0); LYMPHOCYTES # 1.4 10^3/ul (0.8-2.9); LYMPHOCYTES % 14.8 % (15.0-51.0); MEAN CORPUSCULAR HEMOGLOBIN 27.8 pg (29.0-33.0); MEAN CORPUSCULAR HGB CONC 31.9 g/dl (32.0-37.0); MEAN CORPUSCULAR VOLUME 87.1 fl (82.0-101.0); MEAN PLATELET VOLUME 10.2 fl (7.4-10.4); MONOCYTE # 0.8 10^3/ul (0.3-0.9); MONOCYTES % 8.5 % (0.0-11.0); NEUTROPHIL # 6.6 10^3/ul (1.6-7.5); NEUTROPHILS % 72.9 % (39.0-77.0); PLATELET COUNT 311 10^3/UL (140-415); RED BLOOD COUNT 3.49 10^6/ul (4.70-6.10); RED CELL DISTRIBUTION WIDTH 18.5 % (11.5-14.5)
[2018-07-25 06:02] LABS: WHITE BLOOD COUNT 9.1 10^3/ul (4.8-10.8)
[2018-07-25 06:36] LABS: B-TYPE NATRIURETIC PEPTIDE 19100 PG/ML (0-450)
[2018-07-25] MEDS: FUROSEMIDE 40 MG INJ IV (06:42)
[2018-07-25 07:25] LABS: ANION GAP 10 (5-13); BLOOD UREA NITROGEN 57 mg/dl (7-20); CALCIUM 9.2 mg/dl (8.4-10.2); CARBON DIOXIDE 26 mmol/L (21-31); CHLORIDE 106 mmol/L (97-110); CREATININE 1.91 mg/dl (0.61-1.24); GLUCOSE 92 mg/dl (70-220); PHOSPHORUS 3.9 mg/dl (2.5-4.9); SODIUM 142 mmol/L (135-144)
[2018-07-25] MEDS: APIXABAN 5 MG TABLET PO ×2 (08:29→20:44)
[2018-07-25] MEDS: DOCUSATE SODIUM 100 MG CAP PO ×2 (08:29→20:44)
[2018-07-25] MEDS: FAMOTIDINE 20 MG TAB PO (08:30)
[2018-07-25] MEDS: CEFEPIME 1GM/50 ML (PMX) 50 ML IVPB (08:30)
[2018-07-25] MEDS: QUETIAPINE 25 MG TAB PO ×2 (08:30→20:45)
[2018-07-25] MEDS: POLYETHYLENE GLYCOL 17 GM PACKET PO (08:30)
[2018-07-25] MEDS: METOLAZONE 5 MG TAB PO (08:32)
[2018-07-25] MEDS: METOPROLOL (XL) 50 MG TAB PO (08:32)
[2018-07-25] MEDS: MUPIROCIN 2% 22 GM OINT TOP ×2 (08:39→20:45)
[2018-07-25] MEDS: ATORVASTATIN 40 MG TAB PO (20:44)
[2018-07-25] MEDS ORDERED: HYDROCODONE/APAP (5/325) TAB PO (22:00)
[2018-07-26] MEDS: ACETAMINOPHEN 500 MG TAB PO ×3 (05:51→20:25)
[2018-07-26] MEDS: FUROSEMIDE 40 MG INJ IV ×2 (05:51→17:34)
[2018-07-26 05:52] LABS: ADD MAN DIFF? NO
[2018-07-26 06:04] LABS: WHITE BLOOD COUNT 8.4 10^3/ul (4.8-10.8)
[2018-07-26 06:04] LABS: BASOPHILS % 0.5 % (0.0-2.0); EOSINOPHILS # 0.1 10^3/ul (0.0-0.5); EOSINOPHILS % 1.3 % (0.0-7.0); HEMATOCRIT 28.5 % (42.0-52.0); HEMOGLOBIN 9.1 g/dl (14.0-18.0); LYMPHOCYTES # 1.4 10^3/ul (0.8-2.9); LYMPHOCYTES % 16.2 % (15.0-51.0); MEAN CORPUSCULAR HEMOGLOBIN 28.1 pg (29.0-33.0); MEAN CORPUSCULAR HGB CONC 31.9 g/dl (32.0-37.0); MONOCYTES % 11.6 % (0.0-11.0); NEUTROPHIL # 5.9 10^3/ul (1.6-7.5); PLATELET COUNT 286 10^3/UL (140-415); RED BLOOD COUNT 3.24 10^6/ul (4.70-6.10); RED CELL DISTRIBUTION WIDTH 18.2 % (11.5-14.5)
[2018-07-26 06:39] LABS: ANION GAP 9 (5-13); BLOOD UREA NITROGEN 55 mg/dl (7-20); CARBON DIOXIDE 27 mmol/L (21-31); CHLORIDE 103 mmol/L (97-110); GLUCOSE 95 mg/dl (70-220); MAGNESIUM 1.9 mg/dl (1.7-2.5); POTASSIUM 3.8 mmol/L (3.5-5.1); SODIUM 139 mmol/L (135-144)
[2018-07-26] MEDS: MUPIROCIN 2% 22 GM OINT TOP ×2 (08:50→20:25)
[2018-07-26] MEDS: DOXYCYCLINE 100 MG TAB PO ×2 (08:50→20:24)
[2018-07-26] MEDS: CEFEPIME 1GM/50 ML (PMX) 50 ML IVPB (08:50)
[2018-07-26] MEDS: POLYETHYLENE GLYCOL 17 GM PACKET PO (08:51)
[2018-07-26] MEDS: APIXABAN 5 MG TABLET PO ×2 (08:51→20:24)
[2018-07-26] MEDS: FAMOTIDINE 20 MG TAB PO (08:51)
[2018-07-26] MEDS: DOCUSATE SODIUM 100 MG CAP PO ×2 (08:51→20:24)
[2018-07-26] MEDS: QUETIAPINE 25 MG TAB PO ×2 (08:51→20:24)
[2018-07-26] MEDS: METOPROLOL (XL) 50 MG TAB PO (08:51)
[2018-07-26] MEDS: METOLAZONE 5 MG TAB PO (17:34)
[2018-07-26] MEDS: ATORVASTATIN 40 MG TAB PO (20:24)
[2018-07-27] MEDS: HALOPERIDOL 5 MG INJ IM ×2 (01:46→07:58)
[2018-07-27] MEDS: METOLAZONE 5 MG TAB PO (05:33)
[2018-07-27 06:17] LABS: ADD MAN DIFF? NO
[2018-07-27] MEDS: FUROSEMIDE 40 MG INJ IV ×2 (06:18→18:24)
[2018-07-27 06:20] LABS: WHITE BLOOD COUNT 12.4 10^3/ul (4.8-10.8)
[2018-07-27 06:20] LABS: BASOPHIL # 0.1 10^3/ul (0.0-0.1); BASOPHILS % 0.5 % (0.0-2.0); EOSINOPHILS # 0.1 10^3/ul (0.0-0.5); EOSINOPHILS % 0.5 % (0.0-7.0); HEMATOCRIT 29.6 % (42.0-52.0); HEMOGLOBIN 9.5 g/dl (14.0-18.0); LYMPHOCYTES # 1.3 10^3/ul (0.8-2.9); LYMPHOCYTES % 10.6 % (15.0-51.0); MEAN CORPUSCULAR HEMOGLOBIN 27.5 pg (29.0-33.0); MEAN CORPUSCULAR HGB CONC 32.1 g/dl (32.0-37.0); MEAN CORPUSCULAR VOLUME 85.5 fl (82.0-101.0); MEAN PLATELET VOLUME 10.2 fl (7.4-10.4); MONOCYTE # 1.2 10^3/ul (0.3-0.9); MONOCYTES % 9.7 % (0.0-11.0); NEUTROPHIL # 9.7 10^3/ul (1.6-7.5); NEUTROPHILS % 78.5 % (39.0-77.0); PLATELET COUNT 313 10^3/UL (140-415); RED BLOOD COUNT 3.46 10^6/ul (4.70-6.10); RED CELL DISTRIBUTION WIDTH 17.9 % (11.5-14.5)
[2018-07-27 06:44] LABS: ANION GAP 9 (5-13); BLOOD UREA NITROGEN 56 mg/dl (7-20); CALCIUM 9.4 mg/dl (8.4-10.2); CARBON DIOXIDE 32 mmol/L (21-31); CHLORIDE 99 mmol/L (97-110); CREATININE 1.78 mg/dl (0.61-1.24); GLUCOSE 103 mg/dl (70-220); MAGNESIUM 1.9 mg/dl (1.7-2.5); PHOSPHORUS 3.7 mg/dl (2.5-4.9); POTASSIUM 3.7 mmol/L (3.5-5.1); SODIUM 140 mmol/L (135-144)
[2018-07-27] MEDS: CEFEPIME 1GM/50 ML (PMX) 50 ML IVPB (07:57)
[2018-07-27] MEDS: POLYETHYLENE GLYCOL 17 GM PACKET PO (07:58)
[2018-07-27] MEDS: METOPROLOL (XL) 50 MG TAB PO (07:59)
[2018-07-27] MEDS: APIXABAN 5 MG TABLET PO ×2 (07:59→21:47)
[2018-07-27] MEDS: QUETIAPINE 25 MG TAB PO ×2 (07:59→21:47)
[2018-07-27] MEDS: DOCUSATE SODIUM 100 MG CAP PO ×2 (07:59→21:47)
[2018-07-27] MEDS: DOXYCYCLINE 100 MG TAB PO ×2 (07:59→21:47)
[2018-07-27] MEDS: FAMOTIDINE 20 MG TAB PO (07:59)
[2018-07-27] MEDS: MUPIROCIN 2% 22 GM OINT TOP ×2 (08:00→21:48)
[2018-07-27] MEDS: ACETAMINOPHEN 500 MG TAB PO (09:06)
[2018-07-27] MEDS: ALBUTEROL/IPRATROPIUM (NEB) 3 ML AMP HHN (15:22)
[2018-07-27] MEDS: ATORVASTATIN 40 MG TAB PO (21:47)
[2018-07-28] MEDS: METOLAZONE 5 MG TAB PO (05:36)
[2018-07-28] MEDS: FUROSEMIDE 40 MG INJ IV ×2 (06:26→17:45)
[2018-07-28] MEDS: MUPIROCIN 2% 22 GM OINT TOP ×2 (09:56→20:36)
[2018-07-28] MEDS: DOXYCYCLINE 100 MG TAB PO ×2 (09:56→20:35)
[2018-07-28] MEDS: QUETIAPINE 25 MG TAB PO ×2 (09:56→20:35)
[2018-07-28] MEDS: FAMOTIDINE 20 MG TAB PO (09:56)
[2018-07-28] MEDS: APIXABAN 5 MG TABLET PO ×2 (09:56→20:35)
[2018-07-28] MEDS: CEFEPIME 1GM/50 ML (PMX) 50 ML IVPB (09:56)
[2018-07-28] MEDS: DOCUSATE SODIUM 100 MG CAP PO ×2 (09:56→20:35)
[2018-07-28] MEDS: POLYETHYLENE GLYCOL 17 GM PACKET PO (09:56)
[2018-07-28] MEDS: METOPROLOL (XL) 50 MG TAB PO (09:57)
[2018-07-28] MEDS: ATORVASTATIN 40 MG TAB PO (20:35)
[2018-07-28] MEDS: ACETAMINOPHEN 500 MG TAB PO (23:38)
[2018-07-29 05:26] LABS: ADD MAN DIFF? NO
[2018-07-29 05:32] LABS: BASOPHIL # 0.1 10^3/ul (0.0-0.1); BASOPHILS % 0.7 % (0.0-2.0); EOSINOPHILS # 0.2 10^3/ul (0.0-0.5); EOSINOPHILS % 2.1 % (0.0-7.0); HEMATOCRIT 32.3 % (42.0-52.0); HEMOGLOBIN 10.6 g/dl (14.0-18.0); LYMPHOCYTES % 20.3 % (15.0-51.0); MEAN CORPUSCULAR HGB CONC 32.8 g/dl (32.0-37.0); MEAN CORPUSCULAR VOLUME 85.4 fl (82.0-101.0); MEAN PLATELET VOLUME 10.4 fl (7.4-10.4); MONOCYTE # 0.9 10^3/ul (0.3-0.9); MONOCYTES % 8.8 % (0.0-11.0); NEUTROPHIL # 6.8 10^3/ul (1.6-7.5); NEUTROPHILS % 67.6 % (39.0-77.0); PLATELET COUNT 354 10^3/UL (140-415); RED BLOOD COUNT 3.78 10^6/ul (4.70-6.10); RED CELL DISTRIBUTION WIDTH 17.7 % (11.5-14.5)
[2018-07-29] MEDS: METOLAZONE 5 MG TAB PO (05:45)
[2018-07-29] MEDS: FUROSEMIDE 40 MG INJ IV (06:22)
[2018-07-29 06:26] LABS: ANION GAP 8 (5-13); BLOOD UREA NITROGEN 69 mg/dl (7-20); CALCIUM 9.7 mg/dl (8.4-10.2); CARBON DIOXIDE 36 mmol/L (21-31); CHLORIDE 96 mmol/L (97-110); CREATININE 2.43 mg/dl (0.61-1.24); GLUCOSE 104 mg/dl (70-220); MAGNESIUM 2.1 mg/dl (1.7-2.5); PHOSPHORUS 5.7 mg/dl (2.5-4.9); POTASSIUM 3.8 mmol/L (3.5-5.1); SODIUM 140 mmol/L (135-144)
[2018-07-29] MEDS: DOCUSATE SODIUM 100 MG CAP PO ×2 (07:56→20:34)
[2018-07-29] MEDS: POLYETHYLENE GLYCOL 17 GM PACKET PO (07:56)
[2018-07-29] MEDS: FAMOTIDINE 20 MG TAB PO (08:56)
[2018-07-29] MEDS: APIXABAN 5 MG TABLET PO ×2 (08:56→20:33)
[2018-07-29] MEDS: MUPIROCIN 2% 22 GM OINT TOP ×2 (08:56→20:37)
[2018-07-29] MEDS: QUETIAPINE 25 MG TAB PO ×2 (08:56→20:34)
[2018-07-29] MEDS: DOXYCYCLINE 100 MG TAB PO (08:56)
[2018-07-29] MEDS: METOPROLOL (XL) 50 MG TAB PO (08:57)
[2018-07-29] MEDS: ACETAMINOPHEN 500 MG TAB PO (20:32)
[2018-07-29] MEDS: ATORVASTATIN 40 MG TAB PO (20:34)
[2018-07-29] MEDS: HALOPERIDOL 5 MG INJ IM ×2 (21:18→22:02)
[2018-07-30 06:52] LABS: ADD MAN DIFF? NO
[2018-07-30 06:56] LABS: BASOPHIL # 0.1 10^3/ul (0.0-0.1); BASOPHILS % 0.8 % (0.0-2.0); EOSINOPHILS # 0.2 10^3/ul (0.0-0.5); EOSINOPHILS % 1.4 % (0.0-7.0); HEMATOCRIT 36.5 % (42.0-52.0); HEMOGLOBIN 11.5 g/dl (14.0-18.0); LYMPHOCYTES # 2.1 10^3/ul (0.8-2.9); LYMPHOCYTES % 19.2 % (15.0-51.0); MEAN CORPUSCULAR HEMOGLOBIN 27.1 pg (29.0-33.0); MEAN CORPUSCULAR HGB CONC 31.5 g/dl (32.0-37.0); MEAN CORPUSCULAR VOLUME 86.1 fl (82.0-101.0); MEAN PLATELET VOLUME 9.9 fl (7.4-10.4); MONOCYTE # 0.9 10^3/ul (0.3-0.9); MONOCYTES % 8.2 % (0.0-11.0); NEUTROPHIL # 7.5 10^3/ul (1.6-7.5); PLATELET COUNT 403 10^3/UL (140-415); RED BLOOD COUNT 4.24 10^6/ul (4.70-6.10); RED CELL DISTRIBUTION WIDTH 17.3 % (11.5-14.5)
[2018-07-30 06:56] LABS: WHITE BLOOD COUNT 10.7 10^3/ul (4.8-10.8)
[2018-07-30 07:13] LABS: ANION GAP 10 (5-13); BLOOD UREA NITROGEN 81 mg/dl (7-20); CARBON DIOXIDE 35 mmol/L (21-31); CHLORIDE 95 mmol/L (97-110); CREATININE 2.61 mg/dl (0.61-1.24); GLUCOSE 106 mg/dl (70-220); MAGNESIUM 2.2 mg/dl (1.7-2.5); POTASSIUM 4.1 mmol/L (3.5-5.1); SODIUM 140 mmol/L (135-144)
[2018-07-30] MEDS: FAMOTIDINE 20 MG TAB PO (08:19)
[2018-07-30] MEDS: DOCUSATE SODIUM 100 MG CAP PO ×2 (08:19→21:57)
[2018-07-30] MEDS: QUETIAPINE 25 MG TAB PO ×2 (08:20→21:57)
[2018-07-30] MEDS: METOPROLOL (XL) 50 MG TAB PO (08:20)
[2018-07-30] MEDS: POLYETHYLENE GLYCOL 17 GM PACKET PO (08:20)
[2018-07-30] MEDS: MUPIROCIN 2% 22 GM OINT TOP ×2 (08:20→21:57)
[2018-07-30] MEDS: APIXABAN 5 MG TABLET PO ×2 (08:20→21:56)
[2018-07-30] MEDS: ATORVASTATIN 40 MG TAB PO (21:57)
[2018-07-30] MEDS: ACETAMINOPHEN 500 MG TAB PO (21:57)
[2018-07-31 06:04] LABS: ADD MAN DIFF? NO
[2018-07-31 06:09] LABS: WHITE BLOOD COUNT 7.9 10^3/ul (4.8-10.8)
[2018-07-31 06:09] LABS: BASOPHILS % 1.3 % (0.0-2.0); EOSINOPHILS % 2.2 % (0.0-7.0); HEMATOCRIT 35.8 % (42.0-52.0); HEMOGLOBIN 11.4 g/dl (14.0-18.0); LYMPHOCYTES # 2.1 10^3/ul (0.8-2.9); LYMPHOCYTES % 26.7 % (15.0-51.0); MEAN CORPUSCULAR HEMOGLOBIN 27.5 pg (29.0-33.0); MEAN CORPUSCULAR HGB CONC 31.8 g/dl (32.0-37.0); MEAN CORPUSCULAR VOLUME 86.5 fl (82.0-101.0); MEAN PLATELET VOLUME 11.9 fl (7.4-10.4); MONOCYTE # 0.7 10^3/ul (0.3-0.9); MONOCYTES % 8.9 % (0.0-11.0); NEUTROPHIL # 4.8 10^3/ul (1.6-7.5); NEUTROPHILS % 60.5 % (39.0-77.0); PLATELET COUNT 253 10^3/UL (140-415); RED BLOOD COUNT 4.14 10^6/ul (4.70-6.10); RED CELL DISTRIBUTION WIDTH 17.7 % (11.5-14.5)
[2018-07-31 06:10] LABS: BASOPHIL # 0.1 10^3/ul (0.0-0.1); EOSINOPHILS # 0.2 10^3/ul (0.0-0.5)
[2018-07-31 06:47] LABS: ANION GAP 13 (5-13); BLOOD UREA NITROGEN 92 mg/dl (7-20); CALCIUM 9.6 mg/dl (8.4-10.2); CARBON DIOXIDE 32 mmol/L (21-31); CHLORIDE 95 mmol/L (97-110); GLUCOSE 85 mg/dl (70-220); MAGNESIUM 2.3 mg/dl (1.7-2.5); PHOSPHORUS 5.7 mg/dl (2.5-4.9); POTASSIUM 4.4 mmol/L (3.5-5.1); SODIUM 140 mmol/L (135-144)
[2018-07-31] MEDS: POLYETHYLENE GLYCOL 17 GM PACKET PO (09:29)
[2018-07-31] MEDS: MUPIROCIN 2% 22 GM OINT TOP ×2 (09:29→22:27)
[2018-07-31] MEDS: DOCUSATE SODIUM 100 MG CAP PO ×2 (09:30→22:25)
[2018-07-31] MEDS: APIXABAN 5 MG TABLET PO ×2 (09:31→22:25)
[2018-07-31] MEDS: FAMOTIDINE 20 MG TAB PO (09:31)
[2018-07-31] MEDS: QUETIAPINE 25 MG TAB PO ×2 (09:31→22:25)
[2018-07-31] MEDS: METOPROLOL (XL) 50 MG TAB PO (09:32)
[2018-07-31] MEDS: ACETAMINOPHEN 500 MG TAB PO ×2 (15:49→22:47)
[2018-07-31] MEDS: ATORVASTATIN 40 MG TAB PO (22:25)
[2018-08-01 05:57] LABS: ADD MAN DIFF? NO
[2018-08-01 06:11] LABS: BASOPHIL # 0.1 10^3/ul (0.0-0.1); EOSINOPHILS # 0.2 10^3/ul (0.0-0.5); EOSINOPHILS % 2.1 % (0.0-7.0); HEMATOCRIT 35.6 % (42.0-52.0); HEMOGLOBIN 11.3 g/dl (14.0-18.0); LYMPHOCYTES # 2.1 10^3/ul (0.8-2.9); LYMPHOCYTES % 27.1 % (15.0-51.0); MEAN CORPUSCULAR HGB CONC 31.7 g/dl (32.0-37.0); MEAN PLATELET VOLUME 10.5 fl (7.4-10.4); MONOCYTE # 0.7 10^3/ul (0.3-0.9); MONOCYTES % 9.6 % (0.0-11.0); NEUTROPHIL # 4.6 10^3/ul (1.6-7.5); NEUTROPHILS % 59.8 % (39.0-77.0); PLATELET COUNT 408 10^3/UL (140-415); RED BLOOD COUNT 4.19 10^6/ul (4.70-6.10); RED CELL DISTRIBUTION WIDTH 17.4 % (11.5-14.5)
[2018-08-01 06:11] LABS: WHITE BLOOD COUNT 7.7 10^3/ul (4.8-10.8)
[2018-08-01 06:14] LABS: ANION GAP 16 (5-13); BLOOD UREA NITROGEN 96 mg/dl (7-20); CALCIUM 9.8 mg/dl (8.4-10.2); CARBON DIOXIDE 32 mmol/L (21-31); CHLORIDE 91 mmol/L (97-110); GLUCOSE 94 mg/dl (70-220); MAGNESIUM 2.5 mg/dl (1.7-2.5); PHOSPHORUS 5.4 mg/dl (2.5-4.9); SODIUM 139 mmol/L (135-144)
[2018-08-01] MEDS: FAMOTIDINE 20 MG TAB PO (08:58)
[2018-08-01] MEDS: APIXABAN 5 MG TABLET PO (08:58)
[2018-08-01] MEDS: QUETIAPINE 25 MG TAB PO (08:58)
[2018-08-01] MEDS: MUPIROCIN 2% 22 GM OINT TOP (08:59)
[2018-08-01] MEDS: DOCUSATE SODIUM 100 MG CAP PO (09:00)
[2018-08-01] MEDS: METOPROLOL (XL) 50 MG TAB PO (09:00)
[2018-08-01] MEDS: POLYETHYLENE GLYCOL 17 GM PACKET PO (09:00)
[2018-08-01] MEDS: SOD CHLORIDE 0.9% 1,000 ML IV (09:47)
[2018-08-01] MEDS: HALOPERIDOL 5 MG INJ IM (13:52)
== END 2018-08-01 20:05 | DRG 871 ==
LOC: E/R 22:38 → 6WM 07-24 23:31 → ICU 07-23 01:12 → 6WM 07-23 22:00
DX: A41.9 Sepsis, unspecified organism (principal); J96.21 Acute and chronic respiratory failure with hypoxia; I50.23 Acute on chronic systolic (congestive) heart failure; J18.9 Pneumonia, unspecified organism; G92 Toxic encephalopathy; N17.9 Acute kidney failure, unspecified; E87.3 Alkalosis; I13.0 Hypertensive heart and chronic kidney disease with heart failure and stage 1 through stage 4 chronic kidney disease, or unspecified chronic kidney disease; J44.1 Chronic obstructive pulmonary disease with (acute) exacerbation; L03.116 Cellulitis of left lower limb; D63.1 Anemia in chronic kidney disease; E87.5 Hyperkalemia; E78.5 Hyperlipidemia, unspecified; I25.10 Atherosclerotic heart disease of native coronary artery without angina pectoris; I73.9 Peripheral vascular disease, unspecified; I48.91 Unspecified atrial fibrillation; N18.9 Chronic kidney disease, unspecified; R41.0 Disorientation, unspecified; Z93.0 Tracheostomy status; Z22.322 Carrier or suspected carrier of Methicillin resistant Staphylococcus aureus; Z95.1 Presence of aortocoronary bypass graft; Z95.810 Presence of automatic (implantable) cardiac defibrillator; Z85.21 Personal history of malignant neoplasm of larynx; Z89.511 Acquired absence of right leg below knee; Z87.891 Personal history of nicotine dependence
CPT/HCPCS: 36415; 36600; 71045; 80048; 80053; 81003; 82043; 82803; 83605; 83735; 83880; 84100; 84155; 84300; 84484; 85025; 85610; 85730; 87040; 87081; 93005; 94660; 94664; 96374; 97163; 99291-25

== ENCOUNTER 2018-08-01 20:16 | Inpatient (IN) | payer MEDICARE ==
[2018-08-01] MEDS ORDERED: ACETAMINOPHEN 325 MG TAB PO (21:30)
[2018-08-01] MEDS ORDERED: BISACODYL 10 MG SUPP PR (21:30)
[2018-08-01] MEDS ORDERED: MAGNESIUM HYDROXIDE 30ML CUP PO (21:30)
[2018-08-01] MEDS ORDERED: LACTULOSE 30ML CUP PO (21:30)
[2018-08-01] MEDS ORDERED: DOCUSATE SODIUM 100 MG CAP PO (22:00)
[2018-08-01] MEDS: ACETAMINOPHEN 500 MG TAB PO (22:15)
[2018-08-01] MEDS: APIXABAN 5 MG TABLET PO (22:15)
[2018-08-01] MEDS: QUETIAPINE 25 MG TAB PO (22:15)
[2018-08-01] MEDS: ATORVASTATIN 40 MG TAB PO (22:15)
[2018-08-01 22:27] LABS: ADD UMIC YES; UR ASCORBIC ACID 40 mg/dL (NEGATIVE); UR BILIRUBIN (Dip) NEGATIVE (NEGATIVE); UR BLOOD (Dip) NEGATIVE (NEGATIVE); UR CLARITY CLEAR (CLEAR); UR COLOR YELLOW (YELLOW); UR GLUCOSE (Dip) NEGATIVE (NEGATIVE); UR KETONES (Dip) NEGATIVE (NEGATIVE); UR LEUKOCYTE ESTERASE (Dip) NEGATIVE Leu/ul (NEGATIVE); UR NITRITE (Dip) NEGATIVE (NEGATIVE); UR RBC 0 /HPF (0-5); UR SPECIFIC GRAVITY (Dip) 1.015 (1.003-1.030); UR TOTAL PROTEIN (Dip) 1+ mg/dl (NEGATIVE); UR UROBILINOGEN (Dip) 2+ mg/dL (NEGATIVE); UR WBC 0 /HPF (0-5)
[2018-08-01] MEDS: MUPIROCIN 2% 22 GM OINT TOP (23:49)
[2018-08-02] MEDS: ALBUTEROL/IPRATROPIUM (NEB) 3 ML AMP HHN ×6 (00:10→20:40)
[2018-08-02] MEDS: HALOPERIDOL 5 MG INJ IM (01:11)
[2018-08-02 07:58] LABS: ADD MAN DIFF? NO
[2018-08-02] MEDS: QUETIAPINE 25 MG TAB PO ×2 (08:05→21:47)
[2018-08-02 08:12] LABS: WHITE BLOOD COUNT 7.7 10^3/ul (4.8-10.8)
[2018-08-02 08:12] LABS: BASOPHIL # 0.1 10^3/ul (0.0-0.1); BASOPHILS % 1.2 % (0.0-2.0); EOSINOPHILS # 0.1 10^3/ul (0.0-0.5); EOSINOPHILS % 1.4 % (0.0-7.0); HEMATOCRIT 33.9 % (42.0-52.0); HEMOGLOBIN 10.7 g/dl (14.0-18.0); LYMPHOCYTES # 2.1 10^3/ul (0.8-2.9); LYMPHOCYTES % 27.6 % (15.0-51.0); MEAN CORPUSCULAR HEMOGLOBIN 27.2 pg (29.0-33.0); MEAN CORPUSCULAR HGB CONC 31.6 g/dl (32.0-37.0); MEAN PLATELET VOLUME 10.8 fl (7.4-10.4); MONOCYTE # 0.9 10^3/ul (0.3-0.9); NEUTROPHIL # 4.5 10^3/ul (1.6-7.5); NEUTROPHILS % 58.5 % (39.0-77.0); PLATELET COUNT 347 10^3/UL (140-415); RED BLOOD COUNT 3.94 10^6/ul (4.70-6.10); RED CELL DISTRIBUTION WIDTH 17.2 % (11.5-14.5)
[2018-08-02 08:29] LABS: ALANINE AMINOTRANSFERASE 48 IU/L (13-69); ALBUMIN 3.8 g/dl (3.3-4.9); ALKALINE PHOSPHATASE 77 IU/L (42-121); ANION GAP 12 (5-13); ASPARTATE AMINO TRANSFERASE 49 IU/L (15-46); BILIRUBIN,INDIRECT 0.2 mg/dl (0-1.1); BILIRUBIN,TOTAL 0.2 mg/dl (0.2-1.3); BLOOD UREA NITROGEN 99 mg/dl (7-20); CALCIUM 9.5 mg/dl (8.4-10.2); CARBON DIOXIDE 33 mmol/L (21-31); CHLORIDE 93 mmol/L (97-110); CREATININE 2.76 mg/dl (0.61-1.24); GLUCOSE 109 mg/dl (70-220); SODIUM 138 mmol/L (135-144)
[2018-08-02 08:46] LABS: POTASSIUM 3.7 mmol/L (3.5-5.1)
[2018-08-02] MEDS: METOPROLOL (XL) 50 MG TAB PO (09:00)
[2018-08-02] MEDS: DOCUSATE SODIUM 100 MG CAP PO ×2 (09:07→21:48)
[2018-08-02] MEDS: APIXABAN 5 MG TABLET PO ×2 (09:07→21:47)
[2018-08-02] MEDS: FAMOTIDINE 20 MG TAB PO (09:07)
[2018-08-02] MEDS: MUPIROCIN 2% 22 GM OINT TOP ×2 (09:08→21:49)
[2018-08-02] MEDS: POLYETHYLENE GLYCOL 17 GM PACKET PO (09:08)
[2018-08-02] MEDS: SOD CHLORIDE 0.9% 1,000 ML IV ×2 (13:05→23:38)
[2018-08-02] MEDS: MULTIVITAMINS THERAPEUTIC TAB PO (15:50)
[2018-08-02] MEDS: ZINC SULFATE 220 MG CAP PO (15:50)
[2018-08-02] MEDS ORDERED: QUETIAPINE 25 MG TAB PO (21:00)
[2018-08-02] MEDS: ASCORBIC ACID 250 MG TAB PO (21:47)
[2018-08-02] MEDS: SENNA TAB PO (21:47)
[2018-08-02] MEDS: ATORVASTATIN 40 MG TAB PO (21:47)
[2018-08-02] MEDS: METOPROLOL (XL) 25 MG TAB PO (21:48)
[2018-08-03] MEDS: ALBUTEROL/IPRATROPIUM (NEB) 3 ML AMP HHN ×6 (01:01→20:10)
[2018-08-03 07:07] LABS: ADD MAN DIFF? NO
[2018-08-03 07:17] LABS: BASOPHIL # 0.1 10^3/ul (0.0-0.1); BASOPHILS % 0.5 % (0.0-2.0); EOSINOPHILS # 0.1 10^3/ul (0.0-0.5); EOSINOPHILS % 0.8 % (0.0-7.0); HEMATOCRIT 34.3 % (42.0-52.0); HEMOGLOBIN 10.6 g/dl (14.0-18.0); LYMPHOCYTES # 1.9 10^3/ul (0.8-2.9); LYMPHOCYTES % 17.2 % (15.0-51.0); MEAN CORPUSCULAR HEMOGLOBIN 27.2 pg (29.0-33.0); MEAN CORPUSCULAR HGB CONC 30.9 g/dl (32.0-37.0); MEAN CORPUSCULAR VOLUME 87.9 fl (82.0-101.0); MEAN PLATELET VOLUME 10.6 fl (7.4-10.4); MONOCYTE # 0.9 10^3/ul (0.3-0.9); MONOCYTES % 8.3 % (0.0-11.0); NEUTROPHILS % 72.9 % (39.0-77.0); PLATELET COUNT 303 10^3/UL (140-415); RED CELL DISTRIBUTION WIDTH 17.7 % (11.5-14.5)
[2018-08-03 08:13] LABS: ANION GAP 12 (5-13); BLOOD UREA NITROGEN 94 mg/dl (7-20); CALCIUM 9.4 mg/dl (8.4-10.2); CARBON DIOXIDE 28 mmol/L (21-31); CHLORIDE 100 mmol/L (97-110); CREATININE 2.37 mg/dl (0.61-1.24); GLUCOSE 98 mg/dl (70-220); MAGNESIUM 2.5 mg/dl (1.7-2.5); PHOSPHORUS 5.8 mg/dl (2.5-4.9); SODIUM 140 mmol/L (135-144)
[2018-08-03] MEDS: MULTIVITAMINS THERAPEUTIC TAB PO (08:16)
[2018-08-03] MEDS: FAMOTIDINE 20 MG TAB PO (08:16)
[2018-08-03] MEDS: MUPIROCIN 2% 22 GM OINT TOP (08:34)
[2018-08-03] MEDS: APIXABAN 5 MG TABLET PO ×2 (08:34→20:23)
[2018-08-03] MEDS: DOCUSATE SODIUM 100 MG CAP PO ×2 (08:34→20:22)
[2018-08-03] MEDS: POLYETHYLENE GLYCOL 17 GM PACKET PO (08:34)
[2018-08-03] MEDS: ZINC SULFATE 220 MG CAP PO (08:34)
[2018-08-03] MEDS: ASCORBIC ACID 250 MG TAB PO (08:34)
[2018-08-03] MEDS: METOPROLOL (XL) 25 MG TAB PO ×2 (08:35→20:23)
[2018-08-03] MEDS: SOD CHLORIDE 0.9% 1,000 ML IV (14:42)
[2018-08-03] MEDS: FOSFOMYCIN 3 GM PACKET PO (17:23)
[2018-08-03] MEDS: ATORVASTATIN 40 MG TAB PO (20:22)
[2018-08-03] MEDS: SENNA TAB PO (20:23)
[2018-08-03] MEDS: QUETIAPINE 25 MG TAB PO (20:23)
[2018-08-03] MEDS: HALOPERIDOL 5 MG INJ IM (21:14)
[2018-08-04] MEDS: ALBUTEROL/IPRATROPIUM (NEB) 3 ML AMP HHN ×6 (01:38→20:52)
[2018-08-04 07:07] LABS: ADD MAN DIFF? NO
[2018-08-04 07:11] LABS: BASOPHIL # 0.1 10^3/ul (0.0-0.1); BASOPHILS % 0.5 % (0.0-2.0); EOSINOPHILS # 0.2 10^3/ul (0.0-0.5); EOSINOPHILS % 1.7 % (0.0-7.0); HEMATOCRIT 30.7 % (42.0-52.0); HEMOGLOBIN 9.6 g/dl (14.0-18.0); LYMPHOCYTES # 1.8 10^3/ul (0.8-2.9); MEAN CORPUSCULAR HEMOGLOBIN 27.1 pg (29.0-33.0); MEAN CORPUSCULAR HGB CONC 31.3 g/dl (32.0-37.0); MEAN CORPUSCULAR VOLUME 86.7 fl (82.0-101.0); MEAN PLATELET VOLUME 10.4 fl (7.4-10.4); MONOCYTE # 0.9 10^3/ul (0.3-0.9); MONOCYTES % 9.1 % (0.0-11.0); NEUTROPHIL # 6.6 10^3/ul (1.6-7.5); NEUTROPHILS % 69.2 % (39.0-77.0); PLATELET COUNT 304 10^3/UL (140-415); RED BLOOD COUNT 3.54 10^6/ul (4.70-6.10); RED CELL DISTRIBUTION WIDTH 17.3 % (11.5-14.5)
[2018-08-04 07:11] LABS: WHITE BLOOD COUNT 9.5 10^3/ul (4.8-10.8)
[2018-08-04 07:37] LABS: ANION GAP 12 (5-13); BLOOD UREA NITROGEN 75 mg/dl (7-20); CALCIUM 9.3 mg/dl (8.4-10.2); CARBON DIOXIDE 30 mmol/L (21-31); CHLORIDE 98 mmol/L (97-110); CREATININE 1.97 mg/dl (0.61-1.24); GLUCOSE 98 mg/dl (70-220); MAGNESIUM 2.3 mg/dl (1.7-2.5); PHOSPHORUS 3.6 mg/dl (2.5-4.9); POTASSIUM 4.1 mmol/L (3.5-5.1); SODIUM 140 mmol/L (135-144)
[2018-08-04] MEDS: BUMETANIDE 1 MG TAB PO (09:18)
[2018-08-04] MEDS: MULTIVITAMINS THERAPEUTIC TAB PO (09:18)
[2018-08-04] MEDS: FAMOTIDINE 20 MG TAB PO (09:18)
[2018-08-04] MEDS: APIXABAN 5 MG TABLET PO ×2 (09:18→20:06)
[2018-08-04] MEDS: DOCUSATE SODIUM 100 MG CAP PO ×2 (09:18→21:00)
[2018-08-04] MEDS: ASCORBIC ACID 250 MG TAB PO (09:18)
[2018-08-04] MEDS: ZINC SULFATE 220 MG CAP PO (09:18)
[2018-08-04] MEDS: METOPROLOL (XL) 25 MG TAB PO ×2 (09:30→20:07)
[2018-08-04] MEDS: POLYETHYLENE GLYCOL 17 GM PACKET PO (09:30)
[2018-08-04] MEDS: HALOPERIDOL 5 MG INJ IM (17:28)
[2018-08-04] MEDS: ATORVASTATIN 40 MG TAB PO (20:05)
[2018-08-04] MEDS: QUETIAPINE 25 MG TAB PO (20:06)
[2018-08-04] MEDS: ACETAMINOPHEN 500 MG TAB PO (20:06)
[2018-08-04] MEDS: SENNA TAB PO (21:00)
[2018-08-05] MEDS: ALBUTEROL/IPRATROPIUM (NEB) 3 ML AMP HHN ×6 (01:29→20:25)
[2018-08-05 07:20] LABS: ADD MAN DIFF? NO
[2018-08-05 07:24] LABS: BASOPHIL # 0.1 10^3/ul (0.0-0.1); BASOPHILS % 0.9 % (0.0-2.0); EOSINOPHILS # 0.2 10^3/ul (0.0-0.5); EOSINOPHILS % 2.4 % (0.0-7.0); HEMATOCRIT 34.6 % (42.0-52.0); HEMOGLOBIN 10.4 g/dl (14.0-18.0); MEAN CORPUSCULAR HEMOGLOBIN 26.9 pg (29.0-33.0); MEAN CORPUSCULAR HGB CONC 30.1 g/dl (32.0-37.0); MEAN CORPUSCULAR VOLUME 89.6 fl (82.0-101.0); MEAN PLATELET VOLUME 10.6 fl (7.4-10.4); MONOCYTE # 0.8 10^3/ul (0.3-0.9); MONOCYTES % 10.3 % (0.0-11.0); NEUTROPHIL # 5.1 10^3/ul (1.6-7.5); NEUTROPHILS % 61.9 % (39.0-77.0); PLATELET COUNT 293 10^3/UL (140-415); RED BLOOD COUNT 3.86 10^6/ul (4.70-6.10); RED CELL DISTRIBUTION WIDTH 18.1 % (11.5-14.5)
[2018-08-05 07:24] LABS: WHITE BLOOD COUNT 8.2 10^3/ul (4.8-10.8)
[2018-08-05 07:46] LABS: ANION GAP 15 (5-13); BLOOD UREA NITROGEN 76 mg/dl (7-20); CALCIUM 9.6 mg/dl (8.4-10.2); CARBON DIOXIDE 27 mmol/L (21-31); CHLORIDE 99 mmol/L (97-110); CREATININE 2.09 mg/dl (0.61-1.24); GLUCOSE 99 mg/dl (70-220); MAGNESIUM 2.2 mg/dl (1.7-2.5); PHOSPHORUS 3.8 mg/dl (2.5-4.9); POTASSIUM 4.7 mmol/L (3.5-5.1); SODIUM 141 mmol/L (135-144)
[2018-08-05] MEDS: ASCORBIC ACID 250 MG TAB PO (08:39)
[2018-08-05] MEDS: BUMETANIDE 1 MG TAB PO (08:39)
[2018-08-05] MEDS: DOCUSATE SODIUM 100 MG CAP PO ×2 (08:39→21:00)
[2018-08-05] MEDS: FAMOTIDINE 20 MG TAB PO (08:40)
[2018-08-05] MEDS: ZINC SULFATE 220 MG CAP PO (08:40)
[2018-08-05] MEDS: APIXABAN 5 MG TABLET PO ×2 (08:40→20:17)
[2018-08-05] MEDS: MULTIVITAMINS THERAPEUTIC TAB PO (08:40)
[2018-08-05] MEDS: POLYETHYLENE GLYCOL 17 GM PACKET PO (08:41)
[2018-08-05] MEDS: METOPROLOL (XL) 25 MG TAB PO ×2 (08:41→20:19)
[2018-08-05] MEDS: ACETAMINOPHEN 500 MG TAB PO ×2 (09:54→21:24)
[2018-08-05] MEDS: DICLOFENAC SODIUM 1% GEL 100 GM TUBE TP ×3 (12:07→20:20)
[2018-08-05] MEDS: QUETIAPINE 25 MG TAB PO (20:18)
[2018-08-05] MEDS: ATORVASTATIN 40 MG TAB PO (20:19)
[2018-08-05] MEDS: SENNA TAB PO (21:00)
[2018-08-05] MEDS: HALOPERIDOL 5 MG INJ IM (22:25)
[2018-08-06] MEDS: ALBUTEROL/IPRATROPIUM (NEB) 3 ML AMP HHN ×6 (02:08→21:45)
[2018-08-06] MEDS: POLYETHYLENE GLYCOL 17 GM PACKET PO (09:04)
[2018-08-06] MEDS: LIDOCAINE 5% PATCH TD (09:05)
[2018-08-06] MEDS: DOCUSATE SODIUM 100 MG CAP PO ×2 (09:06→21:00)
[2018-08-06] MEDS: FAMOTIDINE 20 MG TAB PO (09:06)
[2018-08-06] MEDS: METOPROLOL (XL) 25 MG TAB PO ×2 (09:06→20:46)
[2018-08-06] MEDS: APIXABAN 5 MG TABLET PO ×2 (09:06→20:44)
[2018-08-06] MEDS: ASCORBIC ACID 250 MG TAB PO (09:06)
[2018-08-06] MEDS: BUMETANIDE 1 MG TAB PO (09:06)
[2018-08-06] MEDS: MULTIVITAMINS THERAPEUTIC TAB PO (09:07)
[2018-08-06] MEDS: DICLOFENAC SODIUM 1% GEL 100 GM TUBE TP ×4 (09:07→20:46)
[2018-08-06] MEDS: ZINC SULFATE 220 MG CAP PO (09:10)
[2018-08-06] MEDS: QUETIAPINE 25 MG TAB PO ×2 (09:30→21:03)
[2018-08-06] MEDS: HALOPERIDOL 5 MG INJ IM (19:41)
[2018-08-06] MEDS: ATORVASTATIN 40 MG TAB PO (20:44)
[2018-08-06] MEDS: SENNA TAB PO (21:00)
[2018-08-07] MEDS: ALBUTEROL/IPRATROPIUM (NEB) 3 ML AMP HHN ×6 (01:52→21:55)
[2018-08-07 07:48] LABS: ANION GAP 8 (5-13); BLOOD UREA NITROGEN 74 mg/dl (7-20); CALCIUM 9.7 mg/dl (8.4-10.2); CARBON DIOXIDE 30 mmol/L (21-31); CHLORIDE 102 mmol/L (97-110); CREATININE 2.03 mg/dl (0.61-1.24); GLUCOSE 93 mg/dl (70-220); MAGNESIUM 2.2 mg/dl (1.7-2.5); PHOSPHORUS 4.6 mg/dl (2.5-4.9); POTASSIUM 4.8 mmol/L (3.5-5.1); SODIUM 140 mmol/L (135-144)
[2018-08-07] MEDS: BUMETANIDE 1 MG TAB PO (08:52)
[2018-08-07] MEDS: APIXABAN 5 MG TABLET PO ×2 (08:53→20:13)
[2018-08-07] MEDS: DOCUSATE SODIUM 100 MG CAP PO ×2 (08:53→20:13)
[2018-08-07] MEDS: FAMOTIDINE 20 MG TAB PO (08:53)
[2018-08-07] MEDS: QUETIAPINE 25 MG TAB PO ×2 (08:53→20:13)
[2018-08-07] MEDS: MULTIVITAMINS THERAPEUTIC TAB PO (08:53)
[2018-08-07] MEDS: ASCORBIC ACID 250 MG TAB PO (08:53)
[2018-08-07] MEDS: ZINC SULFATE 220 MG CAP PO (08:53)
[2018-08-07] MEDS: METOPROLOL (XL) 25 MG TAB PO ×2 (08:54→20:14)
[2018-08-07] MEDS: DICLOFENAC SODIUM 1% GEL 100 GM TUBE TP ×4 (08:54→20:11)
[2018-08-07] MEDS: POLYETHYLENE GLYCOL 17 GM PACKET PO (08:54)
[2018-08-07] MEDS: LIDOCAINE 5% PATCH TD (09:03)
[2018-08-07] MEDS: SENNA TAB PO (20:11)
[2018-08-07] MEDS: ATORVASTATIN 40 MG TAB PO (20:13)
[2018-08-07] MEDS: ACETAMINOPHEN 500 MG TAB PO (20:14)
[2018-08-08] MEDS: ALBUTEROL/IPRATROPIUM (NEB) 3 ML AMP HHN ×3 (01:15→09:00)
[2018-08-08] MEDS: POLYETHYLENE GLYCOL 17 GM PACKET PO (09:28)
[2018-08-08] MEDS: LIDOCAINE 5% PATCH TD (09:29)
[2018-08-08] MEDS: QUETIAPINE 25 MG TAB PO (09:30)
[2018-08-08] MEDS: APIXABAN 5 MG TABLET PO (09:30)
[2018-08-08] MEDS: FAMOTIDINE 20 MG TAB PO (09:30)
[2018-08-08] MEDS: BUMETANIDE 1 MG TAB PO (09:30)
[2018-08-08] MEDS: ZINC SULFATE 220 MG CAP PO (09:30)
[2018-08-08] MEDS: DOCUSATE SODIUM 100 MG CAP PO (09:30)
[2018-08-08] MEDS: ASCORBIC ACID 250 MG TAB PO (09:30)
[2018-08-08] MEDS: METOPROLOL (XL) 25 MG TAB PO (09:30)
[2018-08-08] MEDS: DICLOFENAC SODIUM 1% GEL 100 GM TUBE TP (09:31)
[2018-08-08] MEDS: MULTIVITAMINS THERAPEUTIC TAB PO (09:31)
== END 2018-08-08 11:10 | DRG 91 ==
LOC: VRC 20:16
DX: G72.81 Critical illness myopathy (principal); J96.01 Acute respiratory failure with hypoxia; I50.23 Acute on chronic systolic (congestive) heart failure; I13.0 Hypertensive heart and chronic kidney disease with heart failure and stage 1 through stage 4 chronic kidney disease, or unspecified chronic kidney disease; N17.9 Acute kidney failure, unspecified; G93.40 Encephalopathy, unspecified; J44.1 Chronic obstructive pulmonary disease with (acute) exacerbation; N18.9 Chronic kidney disease, unspecified; F41.9 Anxiety disorder, unspecified; I73.9 Peripheral vascular disease, unspecified; Z85.818 Personal history of malignant neoplasm of other sites of lip, oral cavity, and pharynx; I25.10 Atherosclerotic heart disease of native coronary artery without angina pectoris; Z95.1 Presence of aortocoronary bypass graft; E88.9 Metabolic disorder, unspecified; Z22.322 Carrier or suspected carrier of Methicillin resistant Staphylococcus aureus; Z95.0 Presence of cardiac pacemaker; Z74.09 Other reduced mobility; G31.84 Mild cognitive impairment of uncertain or unknown etiology
CPT/HCPCS: 80048; 80053; 81001; 83735; 84100; 85025; 87081; 87086; 92507; 92610; 94640; 94664; 97110; 97112; 97163; 97167; 97530; 97535; 97542